=== PATIENT | male | born 1985 | race Native Hawaiian/Other Pacific Islander ===

== ENCOUNTER 2016-11-18 11:03 | Emergency (ER) | payer OTHER ==
[~2016-11-18] VITALS: Ht 180.3 cm; Wt 132.9 kg
[2016-11-18 11:12] VITALS: BP 143/91; TEMP 98.4
[2016-11-18] MEDS ORDERED: LOFIBRA160 MG OR (11:18)
== END 2016-11-18 11:47 | disposition home or self-care (01) ==
LOC: ED 11:03
DX: H66.012 Acute suppurative otitis media with spontaneous rupture of ear drum, left ear (principal)
CPT/HCPCS: 99281